=== PATIENT | female | born 1980 | race Caucasian/White ===

== ENCOUNTER → 2016-07-21 | Outpatient (CLI) | payer OTHER ==
--- NOTE | 2016-07-22 11:22 | DI ---
PELVIC ULTRASOUND, 07/21/2016 1:20 PM Clinical History: Pelvic pain. Dysmenorrhea. Previous Exam: None at this facility. Technique: Transabdominal scans are performed. The uterus has a normal appearance and measures approximately 45 x 55 x 95 mm. The central uterine st ripe measures 12 mm. The right ovary has a 15 mm simple cyst and is otherwise normal and demonstrates normal flow. There is a small 10 x 18 x 18 mm cyst of the left ovary in this ovary also demonstrates normal flow. There are no fluid collections or masses. Readin. There are small bilateral ovarian cysts. There is a 15 mm diameter cyst in the right ovary and a 10 x 18 x 18 mm cyst of the left ovary. 2. The uterus has a normal appearance and the central uterine stripe measures 12 mm.
== END ==
LOC: US 12:51
PROVIDERS: ATTEND Family Medicine
DX: R10.2 Pelvic and perineal pain (principal); N94.6 Dysmenorrhea, unspecified; N83.292 Other ovarian cyst, left side; N83.291 Other ovarian cyst, right side
CPT/HCPCS: 76856

== ENCOUNTER → 2016-07-21 | Outpatient (CLI) | payer OTHER ==
--- NOTE | 2016-07-21 19:06 | DI ---
LIMITED LEFT UPPER QUADRANT ULTRASOUND, 07/21/2016 1:22 PM: Clinical History: Palpable mass in the left upper quadrant. Previous Exam: None at this facility. Technique: Scans are performed through the left upper quadrant along the rectus abdominis muscle in m ultiple projections. The patient indicated that there was a palpable "cord" extending along the left lateral margin of the abdominal wall from the costochondral cartilage to below the umbilicus, and sca ns were performed in this area along with color Doppler ultrasound. There is a fusiform shaped hypoechoic mass that is invaginated within the rectus abdominis muscle and corresponds to the palpable "cord" that the patient noted. The exact longitudinal measurement is dif ficult to determine but it is at least 40 mm. The maximum AP and transverse measurements are 7 x 15 m m. In the central portion of the mass, there are bright echoes present. Color Doppler ultrasound show s flow in the muscle tissue surrounding the lesion but not identified within the lesion. Review of th e outside CT scans from [facility] in [place], [place] dated 05/13/2016 shows that there is a very subtle amount of fatty tissue in the rectus abdominis muscle on the left side toward the lower quadrant that corresponds to the lesion seen on ultrasound. The differential would be a lip yelitza versus a liposarcoma. Unfortunately, because of the location in the abdominal wall, pre-and postc ontrast MRI scans through this lesion would be difficult because of breathing artifacts. Fine-needle aspiration of the lesion for cytology would probably be the only next alternative to establish a diag nosis. Readin. The palpable "cord" represents a hypoechoic spindle-shaped mass in the lower half of the rectus a bdominis muscle that has the sonographic appearance of fatty tissue. There are hyperechoic bands inte rmixed within the fatty tissue. The margins are also poorly defined. The lesion measures approximatel y 7 x 15 x 40 mm and shows no vascularity with ultrasound. 2. Because the abdominal wall would be susceptible to breathing motion artifacts, MRI scanning would be less than optimal. Fine needle aspiration of the lesion for cytology is probably the definitive o ption for establishing a diagnosis.
== END ==
LOC: US 13:11
PROVIDERS: ATTEND Surgery
DX: R19.02 Left upper quadrant abdominal swelling, mass and lump (principal)
CPT/HCPCS: 76705

== ENCOUNTER → 2016-08-09 | Outpatient (CLI) | payer OTHER ==
--- NOTE | 2016-08-09 10:45 | DI ---
MRI ABDOMEN W/WO CN,08/09/2016 8:53 AM: Clinical History: Left rectus muscle mass. Previous Exam: CT abdomen pelvis performed May 13, 2016 Findings: Multiplanar MR images are obtained through the abdomen both before and after the intravenous administ ration of IV contrast. The liver, gallbladder, spleen, pancreas, adrenals and kidneys are unremarkable. The palpable marker lies over an area of subcutaneous fat without any enhancement. The rectus muscle appears normal and s ymmetric. There is no fluid identified. There are some postsurgical changes seen within the spine and within th e right lower quadrant which limits evaluation. Impression: No evidence of rectus sheath mass.
== END ==
LOC: MRI 08:47
PROVIDERS: ATTEND Orthopaedic Surgery
DX: R19.04 Left lower quadrant abdominal swelling, mass and lump (principal)
CPT/HCPCS: 74183; A9579